=== PATIENT | female | born 1975 | race Caucasian/White ===

== ENCOUNTER → 2017-01-02 | Outpatient (CLI) | payer OTHER ==
[~2017-01-02] VITALS: Ht 175.3 cm; Wt 120.4 kg
[~2017-01-02] MED LIST: CHLORHEXIDINE GLUCONATE 2 % 1 PACK (2 CLOTHS) TOPICAL PRN; DILT120C7 PO; DO NOT ADM ANY ANTICOAGULANT DRUGS PRN; FISHCAP4 PO; INSULIN HUMAN REGULAR 1,000 UNITS/10 ML VIAL SQ PRN; LACTATED RINGER'S 1000 ML IV PRN; METO50TA PO; METOPROLOL TARTRATE 25 MG TAB PO PRN; MICA80TA2 PO; POVIDONE IODINE 5% (ANTISEPSIS KIT) 4 APPLICATIONS EACH NARE PRN; PROPOFOL 200 MG/20 ML AMP IV ONE; PROZ20CA11 PO; SODIUM CHLORID 0.9% 500 ML IV PRN
[2017-01-02 10:34] VITALS: BP 119/80; PULSE 57; RESP 16; TEMP 98.4; O2SAT 98
[2017-01-02 12:46] VITALS: TEMP 97.4
--- NOTE | 2017-01-02 12:47 | GIPROC ---
[facility] [address] [facility]. [facility] [place], [id number] EGD PROCEDURE REPORT EXAM DATE: 01/02/2017 PATIENT NAME: Daniela Yang MR #: [id number] BIRTHDATE: 1975 ATTENDING: Romario Braswell MD ORDER #: [id number] CIRCUS TRAIN SUPERVISOR: Kam Key and Nicole Jaimes STATUS: outpatient INDICATIONS: The patient is a 41 yr old female here for an EGD due to heartburn PROCEDURE PERFORMED: EGD w/ biopsy MEDICATIONS: None and Per Anesthesia. TOPICAL ANESTHETIC: none CONSENT: The patient understands the risks and benefits of the procedure and understands that these risks include, but are not limited to: sedation, allergic reaction, infection, perforation and/or bleeding. Alternative means of evaluation and treatment include, among others: physical exam, x-rays, and/or surgical intervention. The patient elects to proceed with this endoscopic procedure. medical equipment was checked for proper function. Hand hygiene and appropriate measures for infection prevention was taken. After the risks, benefits and alternatives of the procedure were thoroughly explained, Informed consent was verified, confirmed and timeout was successfully executed by the treatment team. The patient was anesthetized with anesthesia and the Pentax EG-[id number] and [id number] endoscope was introduced through the mouth and advanced to the second portion of the duodenum. Biopsy taken of the gastric antrum for H. pylori. Mild gastritis noted. Retroflexed views revealed a small hiatal hernia The gastroscope was then slowly withdrawn and removed. STOMACH: There was mild gastritis in the gastric antrum. ADVERSE EVENTS: There were no complications. IMPRESSIONS: 1. There was mild gastritis in the gastric antrum 2. Retroflexed views revealed a hiatal hernia RECOMMENDATIONS: 1. Await biopsy results. Biopsy results will not be ready for 7-10 days. If you don't hear from us in two weeks, call our office for biopsy results. 2. Continue PPI PATIENT CONDITION: fair DISPOSITION: Home REPEAT EXAM: NONE Romario Braswell MD eSigned: Romario Braswell MD 01/02/2017 12:47 PM cc:
[2017-01-02 13:05] VITALS: BP 128/70; PULSE 62; RESP 18; O2SAT 99
== END ==
LOC: HEND 10:01
PROVIDERS: ATTEND Surgery
DX: R12 Heartburn (principal); K29.70 Gastritis, unspecified, without bleeding; K44.9 Diaphragmatic hernia without obstruction or gangrene
CPT/HCPCS: 88305; 88312

== ENCOUNTER 2017-02-21 16:09 | Inpatient (IN) | payer OTHER ==
[~2017-02-21] VITALS: Ht 175.3 cm; Wt 118.4 kg
[~2017-02-21 16:09] MED LIST changes: -CHLORHEXIDINE GLUCONATE 2 % 1 PACK (2 CLOTHS) TOPICAL PRN; -DILT120C7 PO; -DO NOT ADM ANY ANTICOAGULANT DRUGS PRN; -INSULIN HUMAN REGULAR 1,000 UNITS/10 ML VIAL SQ PRN; -LACTATED RINGER'S 1000 ML IV PRN; -METO50TA PO; -METOPROLOL TARTRATE 25 MG TAB PO PRN; -POVIDONE IODINE 5% (ANTISEPSIS KIT) 4 APPLICATIONS EACH NARE PRN; -PROPOFOL 200 MG/20 ML AMP IV ONE; -SODIUM CHLORID 0.9% 500 ML IV PRN
[2017-03-19] MEDS ORDERED: FERR325T8 PO (12:57)
[2017-03-19] MEDS ORDERED: METO100T PO (12:57)
[2017-03-20] MEDS ORDERED: METOPROLOL TARTRATE 25 MG TAB PO PRN (06:15)
[2017-03-20] MEDS ORDERED: ACETAMINOPHEN 1000 MG/100 ML VIAL IV SCH (06:15)
[2017-03-20] MEDS ORDERED: ONDANSETRON HCL 4 MG/2 ML VIAL IV PUSH SCH (06:15)
[2017-03-20] MEDS ORDERED: CLINDAMYCIN 900/NS 100 ML IV SCH ×2 (06:15)
[2017-03-20] MEDS ORDERED: APREPITANT 40 MG CAP PO SCH (06:15)
[2017-03-20] MEDS ORDERED: LACTATED RINGER'S 1000 ML IV PRN (06:15)
[2017-03-20] MEDS ORDERED: POVIDONE IODINE 5% (ANTISEPSIS KIT) 4 APPLICATIONS EACH NARE PRN (06:15)
[2017-03-20] MEDS ORDERED: SODIUM CHLORID 0.9% 500 ML IV PRN (06:15)
[2017-03-20] MEDS ORDERED: SCOPOLAMINE 1.5 MG PATCH T-DERMAL SCH (06:15)
[2017-03-20] MEDS ORDERED: CHLORHEXIDINE GLUCONATE 2 % 1 PACK (2 CLOTHS) TOPICAL PRN (06:15)
[2017-03-20] MEDS ORDERED: INSULIN HUMAN REGULAR 1,000 UNITS/10 ML VIAL SQ PRN (06:15)
[2017-03-20] MEDS ORDERED: SODIUM CHLORIDE 0.9% INJ 100 ML ONE (06:57)
[2017-03-20] MEDS ORDERED: METHYLENE BLUE 10 MG/ML VIAL ONE (09:41)
[2017-03-20] MEDS ORDERED: BUPIVACAINE/EPINEPHRINE 0.25% 50 ML VIAL ONE (09:42)
[2017-03-20] MEDS ORDERED: SUGAMMADEX SODIUM 200 MG/2 ML VIAL IV PUSH ONE ×2 (10:05)
[2017-03-20] MEDS ORDERED: FAMOTIDINE 20 MG/2 ML VIAL ONE (10:05)
--- NOTE | 2017-03-20 10:46 | HHI.PR ---
Immediate Post Op Note Procedure Date: Mar 20, 2017 Pre Op Diagnosis: morbid obesity DM, BMI 38, HTN Post Op Diagnosis: same Surgeon: Romario Braswell MD Animal Rehabilitator(s): Dr. Bocanegra Procedure: lap sleeve Findings: no leak Complications: none Specimen(s) removed: none Estimated blood loss: 5cc Anesthesia: General Drains: None Patient to: PACU Patient Condition: Good Romario Braswell MD Mar 20, 2017 10:46
[2017-03-20] MEDS ORDERED: PROPOFOL 200 MG/20 ML AMP IV ONE (12:00)
[2017-03-20] MEDS ORDERED: LACTATED RINGER'S 1000 ML INJ 1,000 ML IV ONE (12:00)
[2017-03-20] MEDS ORDERED: ePHEDrine/NS 25 MG/5 ML SYR IV ONE (12:00)
[2017-03-20] MEDS ORDERED: ONDANSETRON HCL 4 MG/2 ML VIAL IV PUSH ONE (12:00)
[2017-03-20] MEDS ORDERED: DO NOT ADM ANY ANTICOAGULANT DRUGS PRN (12:18)
[2017-03-20] MEDS ORDERED: *MEPERIDINE 25 MG INJ VIAL PERIprocedural Use ONLY ONE (12:28)
[2017-03-20] MEDS ORDERED: *ONDANSETRON 4 MG VIAL PERIprocedural Use ONLY ONE (12:28)
[2017-03-20] MEDS ORDERED: Post-op Orders (for Pharmacy) MISC OTHER ONE (12:30)
[2017-03-20] MEDS ORDERED: ENALAPRILAT 1.25 MG/ML VIAL IV PUSH PRN (12:30)
[2017-03-20] MEDS ORDERED: ACETAMINOPHEN 325MG/HYDROcodone 7.5MG/15ML UDC PO PRN ×2 (12:30)
[2017-03-20] MEDS ORDERED: SODIUM CHLORIDE 0.9% FLUSH 10 ML FLUSH PRN (12:30)
[2017-03-20] MEDS ORDERED: NALOXONE HCL 0.4 MG/ML AMP IV PRN (12:30)
[2017-03-20] MEDS ORDERED: diphenhydrAMINE HCL 50 MG/ML VIAL IV PRN (12:30)
[2017-03-20] MEDS ORDERED: diphenhydrAMINE HCL ELIXIR 12.5 MG/5 ML CUP PO PRN (12:30)
[2017-03-20] MEDS ORDERED: ONDANSETRON HCL 4 MG/2 ML VIAL IV PRN (12:30)
[2017-03-20] MEDS: SODIUM CHLORIDE 0.9% FLUSH 10 ML FLUSH IV FLUSH SCH ×2 (12:30→20:45)
[2017-03-20] MEDS: 1/2 NS + KCL 20 MEQ INJ 1,000 ML IV SCH ×2 (13:00→20:45)
[2017-03-20] MEDS: MORPHINE SULFATE 30 MG/30 ML PCA IV SCH ×2 (13:13→23:05)
[2017-03-20 14:00] VITALS: BP 146/64; PULSE 70; RESP 19; TEMP 96.9; O2SAT 95
[2017-03-20] MEDS: METOCLOPRAMIDE HCL 10 MG/2 ML VIAL IV PUSH SCH ×2 (14:00→20:45)
[2017-03-20] MEDS: PANTOPRAZOLE SOD 40 MG DELAYED RELEASE TAB PO SCH (14:15)
[2017-03-20 16:00] VITALS: BP 126/60; PULSE 73; RESP 19; TEMP 97.7; O2SAT 96
[2017-03-20] MEDS ORDERED: ENOXAPARIN SODIUM 40 MG/0.4 ML SYRINGE SQ SCH (16:00)
[2017-03-20 16:34] VITALS: O2SAT 97
[2017-03-20] MEDS: RESP: ALBUTEROL 2.5 MG/3 ML NEB (SCH) INH ×2 (16:34→20:19)
[2017-03-20] MEDS: VANCOMYCIN INJ 1,000 MG in SODIUM CHLOR 0.9% 250 ML INJ 250 ML IV SCH (17:34)
[2017-03-20] MEDS: ACETAMINOPHEN 1000 MG/100 ML 100 ML IV SCH ×2 (20:46→21:00)
[2017-03-20] MEDS: PCA - TOTAL MG MORPHINE DELIVERED PER SHIFT SCH (20:51)
[2017-03-21 00:17] VITALS: BP 129/62; PULSE 80; RESP 18; TEMP 97.7; O2SAT 96
[2017-03-21] MEDS: RESP: ALBUTEROL 2.5 MG/3 ML NEB (SCH) INH ×5 (00:36→15:31)
[2017-03-21 00:38] VITALS: O2SAT 96
[2017-03-21] MEDS: ACETAMINOPHEN 1000 MG/100 ML 100 ML IV SCH ×2 (02:56→13:00)
[2017-03-21] MEDS: METOCLOPRAMIDE HCL 10 MG/2 ML VIAL IV PUSH SCH ×2 (02:56→12:05)
[2017-03-21 03:45] VITALS: BP 142/69; PULSE 76; RESP 18; TEMP 97; O2SAT 95
[2017-03-21] MEDS: VANCOMYCIN INJ 1,000 MG in SODIUM CHLOR 0.9% 250 ML INJ 250 ML IV SCH (04:37)
[2017-03-21] MEDS: PCA - TOTAL MG MORPHINE DELIVERED PER SHIFT SCH (06:00)
[2017-03-21] MEDS: 1/2 NS + KCL 20 MEQ INJ 1,000 ML IV SCH ×2 (06:00→14:45)
[2017-03-21 07:12] LABS: AUTOMATED NEUTROPHIL # 10.7 TH/MM3 (1.8-7.7); BASOPHIL % 0.2 % (0.0-2.0); HEMATOCRIT 34.5 % (35.0-46.0); HEMO FLAGS DIFF FINAL; LYMPH % 8.8 % (9.0-44.0); LYMPHOCYTE # 1.1 TH/MM3 (1.0-4.8); MEAN CELL VOLUME 93.1 FL (80.0-100.0); MEAN CORPUSCULAR HEMOGLOBIN 30.6 PG (27.0-34.0); MEAN CORPUSCULAR HGB CONC 32.9 % (32.0-36.0); MONO % 8.5 % (0.0-8.0); NEUT % 82.5 % (16.0-70.0); PLATELET COUNT 205 TH/MM3 (150-450); RED CELL DISTRIBUTION WIDTH 14.6 % (11.6-17.2)
[2017-03-21 07:27] LABS: BICARBONATE 24.1 MEQ/L (21.0-32.0); POTASSIUM 3.7 MEQ/L (3.5-5.1)
[2017-03-21] MEDS: SODIUM CHLORIDE 0.9% FLUSH 10 ML FLUSH IV FLUSH SCH (09:00)
[2017-03-21 09:27] VITALS: BP 139/68; PULSE 78; RESP 18; TEMP 98.5; O2SAT 99
[2017-03-21 09:48] VITALS: O2SAT 97
[2017-03-21] MEDS ORDERED: FLUoxetine HCL 20 MG CAP PO SCH (10:00)
[2017-03-21] MEDS: PANTOPRAZOLE SOD 40 MG DELAYED RELEASE TAB PO SCH (12:03)
[2017-03-21] MEDS ORDERED: METOCLOPRAMIDE HCL 10 MG/2 ML VIAL IV PUSH PRN (12:30)
[2017-03-21 12:53] VITALS: BP 120/57; PULSE 80; RESP 16; TEMP 98.7; O2SAT 95
[2017-03-21] MEDS ORDERED: PROMETHAZINE HCL SYRUP 6.25 MG/5 ML CUP PO PRN (13:15)
--- NOTE | 2017-03-21 14:56 | HHI.PR ---
Subjective Subjective Notes Laying in bed Some increased nausea Going slow with fluids Objective Vitals/I&O Vital Signs Date Time Temp Pulse Resp B/P (MAP) Pulse Ox O2 Delivery O2 Flow Rate FiO2 03/21/17 12:53 98.7 80 16 120/57 (78) 95 03/20/17 16:34 21 03/20/17 13:17 Nasal Cannula 2 Labs Laboratory Tests Test 03/21/17 06:17 White Blood Count 13.0 Red Blood Count 3.70 Hemoglobin 11.3 Hematocrit 34.5 Mean Corpuscular Volume 93.1 Mean Corpuscular Hemoglobin 30.6 Mean Corpuscular Hemoglobin Concent 32.9 Red Cell Distribution Width 14.6 Platelet Count 205 Mean Platelet Volume 10.4 Neutrophils (%) (Auto) 82.5 Lymphocytes (%) (Auto) 8.8 Monocytes (%) (Auto) 8.5 Eosinophils (%) (Auto) 0.0 Basophils (%) (Auto) 0.2 Neutrophils # (Auto) 10.7 Lymphocytes # (Auto) 1.1 Monocytes # (Auto) 1.1 Eosinophils # (Auto) 0.0 Basophils # (Auto) 0.0 CBC Comment DIFF FINAL Differential Comment Blood Urea Nitrogen 9 Creatinine 0.68 Random Glucose 93 Calcium Level 8.1 Magnesium Level 2.0 Sodium Level 137 Potassium Level 3.7 Chloride Level 104 Carbon Dioxide Level 24.1 Anion Gap 9 Estimat Glomerular Filtration Rate 94 Cardiovascular: Regular Lungs: Clear Abdomen: Post-op tenderness Extremities: Perfused Wound Wound : Wound Location: Abdomen Appearance: Clean & Dry A/P Assessment and Plan 41yo F POD#1 Lap VSG -Add Phenergan PRN for nausea along with Reglan -Continue with frequent ambulation -Continue to increase fluids as tolerated Discharge Planning D/C home tomorrow Attending Statement patient seen and examined some nausea and pain but controlled will recheck this afternoon for d/c today or tomorrow Attestation The exam, history, and the medical decision-making described in the above note were completed with the assistance of the mid-level provider. I reviewed and agree with the findings presented. I attest that I had a [id number] encounter with the patient on the same day, and personally performed and documented my assessment and findings in the medical record. Hilda Ashley Mar 21, 2017 14:56 Romario Braswell MD Mar 24, 2017 07:13
[2017-03-21] MEDS ORDERED: CARA1SUS3 PO (15:48)
[2017-03-21] MEDS ORDERED: SUCRALFATE 1 GM/10 ML CUP PO SCH (16:00)
--- NOTE | 2017-03-21 19:39 | MP ---
cc: MEG BRASWELL MD DATE OF SURGERY 03/20/17 PREOPERATIVE DIAGNOSIS Morbid obesity, BMI 38.5, hypertension and diabetes. POSTOPERATIVE DIAGNOSIS Morbid obesity, BMI 38.5, hypertension and diabetes. PROCEDURE PERFORMED Laparoscopic sleeve gastrectomy. SURGEON Dr. Obey Braswell GLAZE WIPER Dr. Lashaun Bocanegra. Dr. Bocanegra needed for assistance due to the complexity of the case. Dr. Bocanegra helped in retraction and camera control. ANESTHESIA GETA. IV FLUIDS See anesthesia sheet ESTIMATED BLOOD LOSS 10 mL. DRAINS None COMPLICATIONS None. WOUND CLASSIFICATION Clean contaminated FINDINGS No leak with methylene blue. SPECIMENS None INDICATION The patient is a 41-year-old female who presents with morbid obesity with BMI of 38, hypertension and multiple comorbidities diabetes, multiple attempts at weight loss without success. Decision was for bariatric surgery. PROCEDURE IN DETAIL Patient was taken to the operative suite, placed in the supine position. She was prepped and draped in usual sterile fashion after induction of general endotracheal anesthesia. Brief time-out done stating correct patient, procedure and surgical site and all were in agreement with this. Attention first directed to the midline abdomen 15 cm distal to the xiphoid was marked. A stab todd incision was made with an 11-blade prior to this. Local anesthetic was injected. A 5 mm OptiView port was used and placed under direct vision with the camera, entered the abdomen. Abdomen insufflated to 15 mm pneumoperitoneum. On cursory inspection, no evidence of injury. Several other trocars were placed including a right upper quadrant port 5 mm for a liver retractor to retract the left lobe of the liver. The Rose flex retractor was used. Several other ports positioned and a 15 mm right mid port followed by a left lower quadrant 5 mm port times two and then a lateral left quadrant port. The greater curvature of the stomach short gastrics were taken down from 5 cm proximal pylorus all the way up to the angle of his. This was done to remove also the posterior ligamentous attachments to the stomach. This was done with a harmonic scalpel. Next, a 36-Cambodian Visigi was placed and advanced down to the pylorus. This was a calibration device for sleeve gastrectomy. The sleeve gastrectomy was created 5 cm to the pylorus all the way up to the angle of his removing approximately 88% of the stomach. This was done with echelon Endo-KENNETH stapler. Initial load was a black load followed by green and gold loads. All oscar were reinforced with a seam guard. The staple line was carried a distance of 2 cm from the angle of His the staple line and approximately 1 cm from GE junction staple line. Next the bougie was removed. Methylene blue was instilled to test the staple line without evidence of leak. Next, the gastric colic ligament was sutured to the seam guard using a 2-0 locking suture in a running fashion. Next, Evoseal was then placed to the staple line to improve hemostasis. A small bleed was noted at distal staple line with 5 mm clips placed for hemostasis as well. The stomach was then removed through the 15 port on the right side. The 15 port was closed with a suture passer in a 0 Vicryl in a [id number] fashion. Local anesthetic injected at all port sites. Pneumoperitoneum was removed. All ports removed. 4-0 Monocryl was used for subcuticular suture. The patient tolerated procedure well with no intraoperative complications. All lap and instrument counts were correct at the end of the procedure. The patient was extubated and taken to the PACU. MD JUAN Mason/ /6:49 PM /7:23 PM [id number]
== END 2017-03-21 16:53 | disposition home or self-care (01) | DRG 621 ==
LOC: HSDI 03-20 05:22 → N07B 03-20 13:28
PROVIDERS: ADMIT Surgery; ATTEND Surgery
PROC: 0DB64Z3 Excision of Stomach, Percutaneous Endoscopic Approach, Vertical (ICD-10-PCS; principal; 2017-03-20 10:21)
DX: E66.01 Morbid (severe) obesity due to excess calories (principal); I10 Essential (primary) hypertension; Z68.38 Body mass index [BMI] 38.0-38.9, adult; E11.9 Type 2 diabetes mellitus without complications; R11.0 Nausea
CPT/HCPCS: 80048; 83735; 85025; 94150; 94640; 94664; J0131; J1650; J2175; J2270; J2405; J2765; J3010; J3370; J7050; J7120; J7613; J8501